=== PATIENT | female | born 1940 | race Hispanic/Latino ===

== ENCOUNTER 2017-11-28 19:47 | Emergency (ER) | payer OTHER ==
[2017-11-28] MEDS ORDERED: KETOROLAC TROMETHAMINE 30MG/ML ONE (20:24)
== END 2017-11-29 00:28 | disposition home or self-care (01) ==
LOC: EDH 19:47
DX: M71.21 Synovial cyst of popliteal space [Baker], right knee (principal); I10 Essential (primary) hypertension; E78.5 Hyperlipidemia, unspecified; E11.9 Type 2 diabetes mellitus without complications; Z90.49 Acquired absence of other specified parts of digestive tract; Z98.890 Other specified postprocedural states
CPT/HCPCS: 93970; 96372; 99284; J1885

== ENCOUNTER → 2018-01-05 | Outpatient (CLI) | payer OTHER | END | disposition home or self-care (01) | LOC: OIH 10:39 | PROVIDERS: ATTEND Internal Medicine | DX: M24.811 Other specific joint derangements of right shoulder, not elsewhere classified (principal); M79.601 Pain in right arm; M25.511 Pain in right shoulder | CPT/HCPCS: 73030; 73060 ==